=== PATIENT | female | born 1985 | race Caucasian/White ===

== ENCOUNTER 2017-08-23 02:43 | Emergency (ER) | payer SELFPAY ==
[~2017-08-23] VITALS: Ht 160 cm; Wt 66.7 kg
[~2017-08-23 02:43] MED LIST: OXYC5CAP2 PO
[2017-08-23 02:46] VITALS: BP 139/101
== END 2017-08-23 03:42 | disposition home or self-care (01) ==
LOC: ED 03:21
DX: R20.2 Paresthesia of skin (principal); M25.511 Pain in right shoulder; M79.7 Fibromyalgia; F17.200 Nicotine dependence, unspecified, uncomplicated; Z71.6 Tobacco abuse counseling
CPT/HCPCS: 99281; 99406

== ENCOUNTER 2017-11-06 06:39 | Emergency (ER) | payer MEDICAID, OTHER ==
[~2017-11-06] VITALS: Ht 160 cm; Wt 67.3 kg
[2017-11-06 06:40] VITALS: BP 123/83
== END 2017-11-06 08:26 | disposition home or self-care (01) ==
LOC: ED 08:20
DX: J20.9 Acute bronchitis, unspecified (principal); J45.909 Unspecified asthma, uncomplicated
CPT/HCPCS: 71046; 99284; J7512

== ENCOUNTER 2019-10-10 04:22 | Emergency (ER) | payer MEDICAID ==
[~2019-10-10] VITALS: Ht 160 cm; Wt 59.0 kg
[2019-10-10 04:29] VITALS: BP 112/79
[2019-10-10] MEDS ORDERED: CYCLOBENZAPRINE 10 MG TABLET ONE (05:16)
[2019-10-10] MEDS ORDERED: KETOROLAC 30 MG/1 ML ONE (05:17)
[2019-10-10] MEDS ORDERED: KETOROLAC 30 MG/1 ML IM ONE (05:30)
[2019-10-10] MEDS ORDERED: CYCLOBENZAPRINE 10 MG TABLET PO ONE (05:30)
== END 2019-10-10 05:48 | disposition home or self-care (01) ==
LOC: ED 05:30
DX: M79.7 Fibromyalgia (principal); M79.672 Pain in left foot; M79.671 Pain in right foot; Z76.0 Encounter for issue of repeat prescription; F17.200 Nicotine dependence, unspecified, uncomplicated; J45.909 Unspecified asthma, uncomplicated; Z90.710 Acquired absence of both cervix and uterus
CPT/HCPCS: 96372; 99283; J1885